=== PATIENT | female | born 1950 | race Caucasian/White ===

== ENCOUNTER 2024-10-21 21:40 | Observation (INO) ==
--- NOTE | 2024-10-22 01:45 | Emergency Department Note ---
HPI - Altered Mental Status General Chief Complaint: Altered Mental Status Stated Complaint: AMS Time Seen by Provider: 10/21/24 22:28 Source: medical record Source comment: Nurse's at [facility] facility and medical record documents from [facility]. Mode of arrival: [place] Limitations: altered mental status and physical limitation Limitations comment: Patient has history of dementia, and is wheelchair or stretcher bound History of Present Illness HPI narrative: 74-year-old female presents to the ED, from [facility] at the [facility], with reports of AMS, specifically, difficult to arouse that occurred at ~ 2030. Upon arrival to ED, patient is awake, alert and oriented. She admits to headache, chronic cough that is productive with dark nieves sputum. Denies fever, chills, body aches, chest pain, shortness of breath, abdominal pain, nausea and vomiting, diarrhea, urinary complaints. Patient has noted to have a chronic indwelling Jackson catheter that was recently changed on 10/19/2024. Patient is a DNR but her POLST document allows for a trial period of IV fluids and IV antibiotics. MD complaint: altered mental status Onset (ago): hour(s) (1) Time: 20:30 Timing confirmed by: other ([facility] staff) Severity: mild-moderate Context: history of similar presentation Treatments prior to arrival: other (None) Related Data Home Medications Medication Instructions Recorded Confirmed acetaminophen 325 mg tablet 650 mg PO Q6H PRN pain 07/03/24 10/22/24 atenolol 50 mg tablet 50 mg PO BID 07/03/24 10/22/24 diclofenac sodium 1 % topical gel 1 g topical Q12H PRN ARTHRITIS 07/03/24 10/22/24 fluticasone furoate 200 1 inh inhalation Q24H 07/03/24 10/22/24 mcg-vilanterol 25 mcg/dose inhalation powder (Breo Ellipta) ipratropium 0.5 mg-albuterol 3 mg 3 ml inhalation Q6H PRN COPD 07/03/24 10/22/24 (2.5 mg base)/3 mL nebulization soln lisinopril 5 mg tablet 5 mg PO .QD 07/03/24 10/22/24 megestrol 40 mg tablet 40 mg PO BID 07/03/24 10/22/24 olanzapine 2.5 mg tablet 2.5 mg PO BID 07/03/24 10/22/24 polyethylene glycol 3350 17 17 g PO BEDTIME constipation 07/03/24 10/22/24 gram/dose oral powder ascorbic acid (vitamin C) 500 mg 500 mg PO BID 08/27/24 10/22/24 tablet docusate sodium 50 mg/5 mL oral 100 mg PO BID 08/27/24 10/22/24 liquid (OneLAX Docusate Sodium) gabapentin 400 mg capsule 400 mg PO DAILY 08/27/24 10/22/24 gabapentin 800 mg tablet 800 mg PO BEDTIME 08/27/24 10/22/24 hydrocodone 10 mg-acetaminophen 1 tab PO Q8H PRN pain 08/27/24 10/22/24 325 mg tablet whey protein isolate 6 gram-25 1 ea PO TID 08/27/24 10/22/24 kcal/7 gram oral powder packet (Beneprotein) Previous Rx's Medication Instructions Recorded clindamycin HCl 300 mg capsule 300 mg PO Q6H aspiration pneumonia 10/23/24 #20 caps Allergies Allergy/AdvReac Type Severity Reaction Status Date / Time fentanyl Allergy Unknown Verified 10/21/24 23:13 Review of Systems Status of ROS 10 or more systems reviewed and unremark able except as noted in history and below Constitutional Denies: fever or chills Eyes Denies: change in vision, eye discomfort or eye discharge Ears, nose, mouth, and throat Denies: throat pain, neck pain, difficulty swallowing, hoarseness, ear pain or nasal discharge Cardiovascular Denies: chest pain, palpitations, edema, swelling of feet/ankles or lightheadedness Respiratory Reports: cough (Productive with dark nieves sputum) and chest congestion; Denies: shortness of breath, wheezing or pain on inspiration Gastrointestinal Reports: other (Denies dark, tarry stool); Denies: abdominal pain, nausea, vomiting, heartburn, diarrhea, constipation or blood in stool Genitourinary Reports: other (Patient has chronic indwelling Jackson); Denies: decreased urine ouput Musculoskeletal Denies: back pain, neck pain, extremity pain, extremity swelling or limited range of motion Integumentary/Breast Denies: rash, itching or sores Neurological Reports: headache, weakness in extremities (LE's (at baseline)) and involuntary movements (tremor noted to bilateral hands); Denies: numbness in extremities, slurred speech or difficulty communicating thoughts Psychiatric Denies: anxiety or difficulty concentrating Endocrine Denies: excessive urination or excessive thirst Hematologic/Lymphatic Denies: easy bruising or easy bleeding PFSH PFS Medical History SOB (shortness of breath) CAP (community acquired pneumonia) Protein-calorie malnutrition, moderate Acute urinary retention Hyponatremia GERD (gastroesophageal reflux disease) UTI (urinary tract infection) due to urinary indwelling catheter Dementia MDD (major depressive disorder) COPD (chronic obstructive pulmonary disease) Anxiety Anemia Osteoarthritis Bronchiectasis Hypertension Social History (Updated 10/22/24 @ 07:02 by Manju Gaitan APRN) Smoking status: never smoker Within the past year, how often did you have a drink containing alcohol: never Score interpretation: A score less than 3 is consistent with normal alcohol consumption. Non-prescribed substance use: denies use Problems where you live: no known problems Highest level of school completed/degree received: [employer] Feel stressed/tense/nervous/anxious/difficulty sleeping: not at all Due to disability, difficulty making decisions: Yes Exam Constitutional: abnormal general appearance (chronically ill), no apparent distress, average body habitus and limitations noted (physical limitations) (Pt is WC bound) Vital Signs - 24 hr 10/21/24 21:45 10/21/24 22:00 10/21/24 23:00 Temperature 98 F Pulse Rate 73 71 68 Respiratory Rate 20 19 20 Blood Pressure 106/59 113/65 106/64 Pulse Oximetry 96 97 95 Oxygen Delivery Me thod Nasal Cannula Nasal Cannula Nasal Cannula Oxygen Flow Rate 2 2 2 10/22/24 00:00 10/22/24 01:00 10/22/24 02:00 Temperature Pulse Rate 75 69 73 Respiratory Rate 19 19 20 Blood Pressure 116/69 124/63 115/66 Pulse Oximetry 97 96 95 Oxygen Delivery Me thod Nasal Cannula Nasal Cannula Nasal Cannula Oxygen Flow Rate 2 2 2 10/22/24 03:00 10/22/24 04:00 10/22/24 05:00 Temperature Pulse Rate 71 74 71 Respiratory Rate 18 20 18 Blood Pressure 127/74 131/75 144/81 Pulse Oximetry 97 96 97 Oxygen Delivery Me thod Nasal Cannula Nasal Cannula Nasal Cannula Oxygen Flow Rate 2 2 2 HENMT: normocephalic, head/scalp atraumatic, hearing grossly normal bilaterally, external ears normal, TMs normal bilaterally, nasal mucous membranes normal, external nose normal, oral mucous membranes abnormal (dry) and oropharynx normal Eyes: PERRL, EOMs intact bilaterally, conjunctivae normal, no scleral icterus and periorbital findings normal Neck/C-Spine: visual inspection normal, trachea midline, cervical spine nontender, cervical full ROM noted and supple Lymph: no lymphadenopathy noted Chest: inspection of chest normal and palpation of chest normal Respiratory: breath sounds unequal (scattered rhonchi throughout, worse on R), normal respiratory effort, auscultation abnormal (scattered rhonchi throughout, worse on R), no wheezes and no use of accessory muscles Cardiovascular: normal heart rate noted, regular rhythm noted and no JVD Gastrointestinal: abdomen normal to inspection, abdomen soft to palpation, nontender to palpation, nondistended, normoactive bowel sounds, no hepatosplenomegaly and no masses Genitourinary: no CVA tenderness and bladder normal to palpation chronic indwelling jackson catheter intact Back/Pelvis: spine normal to inspection, no thoracic spine tenderness, no lumbar spine tenderness, thoracic spine ROM normal and lumbar spine ROM normal Extremities: normal to inspection, normal to palpation, tenderness noted (severe TTP R femur) and abnormal ROM noted (chronic, at baseline) Neurology: movement abnormality noted other (tremors boo hands), no focal motor deficit noted, no sensory deficits noted, gait abnormality noted (unable to access), speech normal, coordination normal and GCS normal Psychiatry: mental status grossly normal, oriented x3, thought process normal, cooperative and affect normal Skin: skin color normal, no rash, wound(s) noted Reports (superficial) (R buttock sacral decub), skin turgor abnormal Reports (tenting) and jaundice noted Course Vital Signs Vital signs: Vital Signs Temperature 98 F 10/21/24 21:45 Pulse Rate 73 10/21/24 21:45 Respiratory Rate 20 10/21/24 21:45 Blood Pressure 106/59 10/21/24 21:45 Pulse Oximetry 96 10/21/24 21:45 Oxygen Delivery Method Nasal Cannula 10/21/24 21:45 Oxygen Flow Rate 2 10/21/24 21:45 Temperature 98.4 F 10/23/24 08:00 Pulse Rate 78 10/23/24 08:00 Respiratory Rate 16 10/23/24 08:00 Blood Pressure 151/80 10/23/24 08:00 Pulse Oximetry 96 10/23/24 07:07 Oxygen Delivery Method Room Air 10/23/24 08:00 Oxygen Flow Rate 2 10/23/24 07:07 Fraction of Inspired Oxygen 28 10/23/24 07:07 MDM - Altered Mental Status MDM Narrative Medical decision making narrative: CBC essentially unremarkable. CMP within normal limits except for sodium 129L, chloride 96.0L, anion gap 1.0L, BUN 25H, calcium 10.8 H, albumin 2.8L. CXR reveal a RML pneumonia and her urinalysis is consistent with a UTI. Pt started on Rocephin 1g IV, Azithromycin 500 mg IV and Vancomycin 1g IV while in the ED. Pt has been awake and alert, oriented x 3 since arrival to the ED. However, pt consistently screams help to get someone to come to her room to sit with her. I have discussed the clinical case, including pertinent positives and negatives with [place] (TIMBO) @ 0632, and the need for further testing/observation in the inpatient arena. She has recommend observation status. I have made the patient and daughter aware of the current disposition plan. Differential Diagnosis Differential diagnosis: Likely altered mental status, delirium, dementia, hypoglycemia, hyponatremia, sepsis and OTHER (pneumonia, UTI, CVA) Medical Records Attestation: I reviewed the patient's medical records. Lab Data Attestation: I reviewed the patient's lab results. Labs: Lab Results 10/22/24 10/22/24 Range/Units 01:25 06:40 WBC 5.6 (4.3-9.3) K/uL RBC 3.8 L (4.00-5.50) M/uL Hgb 12.2 L (12.5-15.8) gm/dL Hct 35.2 L (35.9-46.7) % MCV 93.3 (81.0-93.7) fl MCH 32.3 H (27.6-32.2) pg MCHC 34.6 (33.1-35.3) g/dl RDW 13.3 (11.4-14.2) % Plt Count 218 (152-353) K/uL MPV 8.8 (6.9-10.8) fl Gran % 59.5 (47.8-71.3) % Lymph % (Auto) 26.7 (20.0-43.0) % [place] % (Auto) 10.3 H (3.6-9.8) % Eos % (Auto) 3.1 H (0.4-2.8) % Baso % (Auto) 0.4 (0.1-0.85) Lymph # (Auto) 1.5 (1.1-3.1) [place] # (Auto) 0.6 L (1.1-3.1) Eos # (Auto) 0.2 (0.0-0.2) Baso # (Auto) 0.0 (0.0-0.1) Absolute Gran (auto) 3.3 (2.3-6.0) Sodium 129 L (136-145) mmol/L Potassium 4.7 (3.6-5.2) mmol/L Chloride 96.0 L (98-107) mmol/L Carbon Dioxide 32 (21-32) mmol/L Anion Gap 1.0 L (4-14) mEq/L BUN 25 H (7-18) mg/dL Creatinine 0.6 (0.6-1.3) mg/dL Estimated GFR 93.0 (>59.9) Glucose 88 (70-110) mg/dL Calcium 10.8 H (8.5-10.1) mg/dL Total Bilirubin 0.61 (0.0-1.0) mg/dL AST 19 (15-37) U/L ALT 17 L (30-65) U/L Alkaline Phosphatase 73 (50-136) U/L Total Protein 7.2 (6.4-8.2) g/dL Albumin 2.8 L (3.4-5.0) g/dL Urine Color Yellow (STRAW/YELL.) Urine Appearance Cloudy (CLEAR) Ur Specific [place] 1.025 (1.001-1.035) Urine Protein Negative (NEGATIVE) Urine Glucose (UA) Normal (NORMAL) Urine Ketones Negative (NEGATIVE) Urine Occult Blood Negative (NEG - TRACE) Urine Nitrite Negative (NEGATIVE) Urine Bilirubin Negative (NEGATIVE) Urine Urobilinogen Normal (NORMAL) Ur Leukocyte Esterase Positive (NEGATIVE) Urine RBC 0 - 2 (0 - 5) Urine WBC 2 - 5 ( 0 - 5) Ur Epithelial Cells Few (Few/HPF) Amorphous Sediment Few (Negative) Urine Bacteria Negative (Negative) Urine Mucus Negative (Negative) Urine Trichomonas Negative (Negative) Urine Yeast Negative (Negative) Fluid pH 8.0 (5 - 9) Imaging Data Imaging ordered: Chest x-ray Attestation: I have reviewed the pertinent imaging results. Radiologist's impression: PROCEDURE: Chest X-ray 1 View. HISTORY: AMS, productive coughAMS, productive cough; . TECHNIQUE: AP view. COMPARISON: August 28, 2024. TECHNICAL QUALITY: Satisfactory. FINDINGS: Normal size heart. Mediastinum and hilar regions show no masses or lymphadenopathy. Normal central vascularity. Increased consolidation right mid lung khan consistent with pneumonia. Left lung khan clear. No pleural fluid. No acute bony abnormality. IMPRESSION: Right mid lung field pneumonia. THIS IS AN ELECTRONICALLY VERIFIED FINAL REPORT 10/22/2024 5:47 AM - Electronically signed by Washington Vaz MD Discharge Plan Discharge Patient Disposition: Admitted As Observation Condition: Improved Clinical Impression: AMS (altered mental status), Community acquired pneumonia of right middle lobe of lung, Acute hyponatremia, Acute dehydration, Hypochloremia, Decubitus ulcer of right buttock, stage 1, Acute UTI Interventions: ED Discharge Assessment Last Done: 10/22/24 12:35 ED Discharge Vital Sign Last Done: 10/22/24 12:35 Emergency Department Charge Sheet Last Done: 10/22/24 12:35 Time of Disposition: 06:32 Discharge Date/Time: 10/22/24 12:35
[2024-10-22 02:00] LABS: Basophils%(Percent) Auto 0.4 (0.1-0.85); Eosinophils#(Absolute)Auto 0.2 (0.0-0.2); Eosinophils%(Percent) Auto 3.1 % (0.4-2.8); Granulocytes % - Auto 59.5 % (47.8-71.3); Granulocytes#(Absolute)- Auto 3.3 (2.3-6.0); Hematocrit 35.2 % (35.9-46.7); Mean Corpuscular Volume 93.3 fl (81.0-93.7); Monocytes #(Absolute)- Auto 0.6 (1.1-3.1); Monocytes %(Percent)- Auto 10.3 % (3.6-9.8); Platelet Count 218 K/uL (152-353); Potassium 4.7 mmol/L (3.6-5.2); White Blood Count 5.6 K/uL (4.3-9.3)
[2024-10-22 07:48] LABS: Specific Gravity Urine 1.025 (1.001-1.035); Urine Appearance CLOUDY (CLEAR); Urine Blood NEGATIVE (NEG - TRACE); Urine Color YELLOW (STRAW/YELL.); Urine Urobilinogen Normal (NORMAL)
[2024-10-22 07:59] LABS: Urine Amorphous Sediment Few (Negative); Urine Yeast Negative (Negative)
[2024-10-22] MEDS ORDERED: 0.9 % SODIUM CHLORIDE 1000 ML 1,000 ML IV ONE (08:04)
[2024-10-22] MEDS ORDERED: 0.9 % SODIUM CHLORIDE MB+ 50 ML IV ONE (08:04)
[2024-10-22] MEDS ORDERED: 0.9 % SODIUM CHLORIDE 250 ML IV ONE ×2 (08:04→09:29)
[2024-10-22] MEDS ORDERED: CEFTRIAXONE SODIUM 1 GM VIAL ONE (08:05)
[2024-10-22] MEDS ORDERED: AZITHROMYCIN 500 MG VIAL ONE (08:05)
[2024-10-22] MEDS: 0.9 % SODIUM CHLORIDE 1000 ML 1,000 ML IV STA (08:10)
[2024-10-22] MEDS: AZITHROMYCIN 500 MG 500 MG in 0.9 % SODIUM CHLORIDE 250 ML IV ONE ×2 (08:11→08:12)
[2024-10-22] MEDS: CEFTRIAXONE SODIUM 1 GM in 0.9 % SODIUM CHLORIDE MB+ 50 ML IV ONE ×2 (08:11→08:15)
[2024-10-22] MEDS ORDERED: VANCOMYCIN HCL 1,000 MG VIAL IV ONE (08:26)
[2024-10-22] MEDS: VANCOMYCIN HCL 1,000 MG in 0.9 % SODIUM CHLORIDE 250 ML IV STA (09:30)
[2024-10-22] MEDS ORDERED: HYDROCODONE/APAP 10/325 MG 1 EACH TABLET PO PRN (14:00)
[2024-10-22] MEDS ORDERED: ACETAMINOPHEN 325 MG TABLET PO PRN (14:00)
[2024-10-22] MEDS: IPRATROPIUM/ALBUTEROL SULFATE 3 ML AMPUL.NEB INH PRN (14:03)
[2024-10-22] MEDS: CEFTRIAXONE SODIUM 1 GM in 0.9 % SODIUM CHLORIDE MB+ 50 ML IV SCH (14:50)
[2024-10-22] MEDS ORDERED: VANCOMYCIN HCL 1,000 MG in 0.9 % SODIUM CHLORIDE 250 ML IV ONE (15:00)
[2024-10-22] MEDS: lisinopriL 5 MG TABLET PO SCH (16:43)
[2024-10-22] MEDS: atenoloL 50 MG TABLET PO SCH (16:43)
[2024-10-22] MEDS: PANTOPRAZOLE SODIUM 40 MG TABLET.DR PO ONE (16:43)
[2024-10-22] MEDS: ENOXAPARIN SODIUM 40 MG/0.4 ML SYRINGE SUBQ SCH (16:44)
[2024-10-22] MEDS: polyethylene glycoL 3350 17 GM POWD.PACK PO SCH (21:48)
[2024-10-22] MEDS: MEGESTROL ACETATE 40 MG TABLET PO SCH (21:48)
[2024-10-22] MEDS: OLANZapine 2.5 MG TABLET PO SCH (21:50)
[2024-10-23 03:11] VITALS: RESP 16
[2024-10-23 05:44] LABS: Basophils%(Percent) Auto 0.4 (0.1-0.85); Eosinophils#(Absolute)Auto 0.3 (0.0-0.2); Eosinophils%(Percent) Auto 4.1 % (0.4-2.8); Granulocytes % - Auto 64.7 % (47.8-71.3); Granulocytes#(Absolute)- Auto 4.2 (2.3-6.0); Hematocrit 34.4 % (35.9-46.7); Mean Corpuscular Volume 92.6 fl (81.0-93.7); Monocytes #(Absolute)- Auto 0.8 (1.1-3.1); Monocytes %(Percent)- Auto 12.8 % (3.6-9.8); Platelet Count 196 K/uL (152-353); White Blood Count 6.5 K/uL (4.3-9.3)
[2024-10-23 06:13] LABS: Potassium 4.3 mmol/L (3.6-5.2)
[2024-10-23] MEDS: CEFTRIAXONE SODIUM 1 GM in 0.9 % SODIUM CHLORIDE MB+ 50 ML IV SCH (08:30)
[2024-10-23] MEDS: AZITHROMYCIN 500 MG 500 MG in 0.9 % SODIUM CHLORIDE 250 ML IV SCH (09:30)
[2024-10-23] MEDS: VANCOMYCIN/WATER 750 MG 750 MG/150 ML PIGGYBACK IV SCH (12:10)
--- NOTE | 2024-10-23 12:11 | Short Stay Summary ---
H&P: HPI History of Present Illness Chief complaint: AMS, RML PNEUMONIA, HYPONATREMIA, HYPOCHLOREMIA Narrative: 74-year-old female presents to the ED, from [facility], with reports of AMS, specifically, difficult to arouse that occurred at ~ 2030. Upon arrival to ED, patient is awake, alert and oriented. She admits to headache, chronic cough that is productive with dark nieves sputum. Denies fever, chills, body aches, chest pain, shortness of breath, abdominal pain, nausea and vomiting, diarrhea, urinary complaints. Patient has noted to have a chronic indwelling Jackson catheter that was recently changed on 10/19/2024. Patient is a DNR but her POLST document allows for a trial period of IV fluids and IV antibiotics. Admitted patient to med/surg for observation and treatment. Review of Systems Status of ROS 10 or more systems reviewed and unremark able except as noted in history and below Constitutional Denies: fever or chills Eyes Denies: change in vision, eye discomfort or eye discharge Ears, nose, mouth, and throat Denies: throat pain, neck pain, difficulty swallowing, hoarseness, ear pain or nasal discharge Cardiovascular Denies: chest pain, palpitations, edema, swelling of feet/ankles, lightheadedness or shortness of breath with exertion Respiratory Reports: cough (Productive with dark nieves sputum) and chest congestion; Denies: shortness of breath, wheezing or pain on inspiration Gastrointestinal Reports: other (Denies dark, tarry stool); Denies: abdominal pain, nausea, vomiting, heartburn, diarrhea, constipation, difficulty swallowing or blood in stool Genitourinary Reports: other (Patient has chronic indwelling Jackson); Denies: decreased urine ouput Musculoskeletal Denies: back pain, neck pain, extremity pain, extremity swelling or limited range of motion Integumentary/Breast Denies: rash, itching or sores Neurological Reports: headache, weakness in extremities (LE's (at baseline)) and involuntary movements (tremor noted to bilateral hands); Denies: numbness in extremities, slurred speech or difficulty communicating thoughts Psychiatric Denies: anxiety or difficulty concentrating Endocrine Denies: excessive urination or excessive thirst Hematologic/Lymphatic Denies: easy bruising or easy bleeding Allergic/Immunologic Denies: wheezing PFSH [facility] Medical History SOB (shortness of breath) CAP (community acquired pneumonia) Protein-calorie malnutrition, moderate Acute urinary retention Hyponatremia GERD (gastroesophageal reflux disease) UTI (urinary tract infection) due to urinary indwelling catheter Dementia MDD (major depressive disorder) COPD (chronic obstructive pulmonary disease) Anxiety Anemia Osteoarthritis Bronchiectasis Hypertension Social History (Updated 10/22/24 @ 07:02 by Manju Gaitan APRN) Smoking status: never smoker Within the past year, how often did you have a drink containing alcohol: never Score interpretation: A score less than 3 is consistent with normal alcohol consumption. Non-prescribed substance use: denies use Problems where you live: no known problems Highest level of school completed/degree received: [employer] Feel stressed/tense/nervous/anxious/difficulty sleeping: not at all Due to disability, difficulty making decisions: Yes Meds Home Medications and Allergies Home Medications Medication Instructions Recorded Confirmed Type acetaminophen 325 mg tablet 650 mg PO Q6H PRN pain 07/03/24 10/22/24 History atenolol 50 mg tablet 50 mg PO BID 07/03/24 10/22/24 History diclofenac sodium 1 % topical gel 1 g topical Q12H PRN ARTHRITIS 07/03/24 10/22/24 History fluticasone furoate 200 1 inh inhalation Q24H 07/03/24 10/22/24 History mcg-vilanterol 25 mcg/dose inhalation powder (Breo Ellipta) ipratropium 0.5 mg-albuterol 3 mg 3 ml inhalation Q6H PRN COPD 07/03/24 10/22/24 History (2.5 mg base)/3 mL nebulization soln lisinopril 5 mg tablet 5 mg PO .QD 07/03/24 10/22/24 History megestrol 40 mg tablet 40 mg PO BID 07/03/24 10/22/24 History olanzapine 2.5 mg tablet 2.5 mg PO BID 07/03/24 10/22/24 History polyethylene glycol 3350 17 17 g PO BEDTIME constipation 07/03/24 10/22/24 History gram/dose oral powder ascorbic acid (vitamin C) 500 mg 500 mg PO BID 08/27/24 10/22/24 History tablet docusate sodium 50 mg/5 mL oral 100 mg PO BID 08/27/24 10/22/24 History liquid (OneLAX Docusate Sodium) gabapentin 400 mg capsule 400 mg PO DAILY 08/27/24 10/22/24 History gabapentin 800 mg tablet 800 mg PO BEDTIME 08/27/24 10/22/24 History hydrocodone 10 mg-acetaminophen 1 tab PO Q8H PRN pain 08/27/24 10/22/24 History 325 mg tablet whey protein isolate 6 gram-25 1 ea PO TID 08/27/24 10/22/24 History kcal/7 gram oral powder packet (Beneprotein) clindamycin HCl 300 mg capsule 300 mg PO Q6H aspiration pneumonia 10/23/24 Rx #20 caps Allergies Allergy/AdvReac Type Severity Reaction Status Date / Time fentanyl Allergy Unknown Verified 10/21/24 23:13 Exam Exam: Patient was resting in melendez's position upon entering the room for exam. Constitutional: abnormal general appearance (chronically ill), no apparent distress, average body habitus, limitations noted (physical limitations) (Pt is WC bound) and alert Vital Signs - 24 hr 10/22/24 11:00 10/22/24 12:00 10/22/24 12:35 Temperature 98 F Pulse Rate 63 69 69 Pulse Rate [Left C arotid] Respiratory Rate 20 20 20 Blood Pressure 150/65 148/64 148/64 Blood Pressure [Ri ght Arm] Pulse Oximetry 97 98 98 Oxygen Delivery Me thod Nasal Cannula Nasal Cannula Oxygen Flow Rate 2 2 Fraction of Inspir ed Oxygen 10/22/24 17:00 10/22/24 17:54 10/22/24 20:00 Temperature 97.6 F 98.4 F Pulse Rate 77 Pulse Rate [Left C arotid] 101 H 90 Respiratory Rate 18 17 Blood Pressure Blood Pressure [Ri ght Arm] 115/57 139/76 Pulse Oximetry 96 98 Oxygen Delivery Me thod Nasal Cannula Room Air Oxygen Flow Rate 2 Fraction of Inspir ed Oxygen 10/22/24 20:06 10/22/24 21:48 10/22/24 22:48 Temperature Pulse Rate 90 72 Pulse Rate [Left C arotid] Respiratory Rate Blood Pressure 139/76 139/78 Blood Pressure [Ri ght Arm] Pulse Oximetry 97 Oxygen Delivery Me thod Oxygen Flow Rate Fraction of Inspir ed Oxygen 10/23/24 03:10 10/23/24 06:00 10/23/24 07:07 Temperature 98.2 F 98.1 F Pulse Rate Pulse Rate [Left C arotid] 72 72 Respiratory Rate 16 16 Blood Pressure Blood Pressure [Ri ght Arm] 139/73 145/84 Pulse Oximetry 98 97 96 Oxygen Delivery Me thod Nasal Cannula Nasal Cannula Nasal Cannula Oxygen Flow Rate 2 2 2 Fraction of Inspir ed Oxygen 28 10/23/24 08:00 Temperature 98.4 F Pulse Rate Pulse Rate [Left C arotid] 78 Respiratory Rate 16 Blood Pressure Blood Pressure [Ri ght Arm] 151/80 Pulse Oximetry Oxygen Delivery Me thod Room Air Oxygen Flow Rate Fraction of Inspir ed Oxygen HENMT: normocephalic, head/scalp atraumatic, hearing grossly normal bilaterally, external ears normal, TMs normal bilaterally, nasal mucous membranes normal, external nose normal, oral mucous membranes abnormal (dry) and oropharynx normal Eyes: PERRL, EOMs intact bilaterally, conjunctivae normal, no scleral icterus and periorbital findings normal Neck/C-Spine: visual inspection normal, trachea midline, cervical spine nontender, cervical full ROM noted and supple Lymph: no lymphadenopathy noted Chest: inspection of chest normal and palpation of chest normal Respiratory: breath sounds unequal (scattered rhonchi throughout, worse on R), normal respiratory effort, auscultation abnormal (scattered rhonchi throughout, worse on R), no wheezes and no use of accessory muscles Cardiovascular: normal heart rate noted, regular rhythm noted and no JVD Gastrointestinal: abdomen normal to inspection, abdomen soft to palpation, nontender to palpation, nondistended, normoactive bowel sounds, no hepatosplenomegaly and no masses Genitourinary: no CVA tenderness and bladder normal to palpation chronic indwelling jackson catheter intact Back/Pelvis: spine normal to inspection, no thoracic spine tenderness, no lumbar spine tenderness, thoracic spine ROM normal and lumbar spine ROM normal Extremities: normal to inspection, normal to palpation, tenderness noted (severe TTP R femur) and abnormal ROM noted (chronic, at baseline) Neurology: movement abnormality noted other (tremors boo hands), no focal mot or deficit noted, no sensory deficits noted, gait abnormality noted (unable to access), speech normal, coordination normal and GCS normal Psychiatry: mental status grossly normal, oriented x3, thought process normal, cooperative and affect normal Skin: skin color normal, no rash, wound(s) noted Reports (superficial) (R buttock sacral decub), skin turgor normal and jaundice noted Assessment and Plan Assessment and Plan (1) Constipation: Qualifiers: Constipation type: unspecified constipation type Qualified Code(s): K59.00 - Constipation, unspecified Code(s): K59.00 - Constipation, unspecified (2) Pneumonia: Qualifiers: Pneumonia type: aspiration pneumonia Aspiration pneumonia type: unspecified Laterality: unspecified laterality Lung location: unspecified part of lung Qualified Code(s): J69.0 - Pneumonitis due to inhalation of food and vomit Code(s): J18.9 - Pneumonia, unspecified organism (3) Hypertension: Qualifiers: Hypertension type: primary hypertension Qualified Code(s): I10 - Essential (primary) hypertension Code(s): I10 - Essential (primary) hypertension (4) Dementia: Qualifiers: Dementia type: vascular dementia Dementia severity: moderate Dementia behavioral or psychological symptom: with other behavioral disturbance Qualified Code(s): F01.B18 - Vascular dementia, moderate, with other behavioral disturbance Code(s): F03.90 - Unspecified dementia, unspecified severity, without behavioral disturbance, psychotic disturbance, mood disturbance, and anxiety (5) Hypercalcemia: Code(s): E83.52 - Hypercalcemia (6) Hypoalbuminemia: Code(s): E88.09 - Other disorders of plasma-protein metabolism, not elsewhere classified (7) Hyponatremia: Code(s): E87.1 - Hypo-osmolality and hyponatremia Plan Atenolol 50 mg PO BID Lisinopril 5 mg PO Daily Megestrol Acetate 40 mg PO BID Olanzapine 2.5 mg PO BID Polyethylene Glycol 17 gm PO Bedtime Azithromycin 500 mg in Sodium Chloride 250 mls @ 250 mls/hr IV Daily Enoxaparin Sodium 40 mg SUBQ Daily Vancomycin/Water 750 mg in 150 mls @ 100 mls/hr IV Q24H Ceftriaxone Sodium 1 gm in Sodium Chloride 50 mls @ 100 mls/hr IV Q24H Acetaminophen 325 mg PO Q6H PRN Hydrocodone Bitart/Acetaminophen 10-325 mg (1) each PO Q8H PRN Albuterol Sulfate 3 ml INH Q6H PRN Patient is ready for discharge back to the longterm. Results Labs Labs: CBC WBC 6.5 K/uL (4.3-9.3) 10/23/24 05:20 RBC 3.7 M/uL (4.00-5.50) L 10/23/24 05:20 Hgb 11.9 gm/dL (12.5-15.8) L 10/23/24 05:20 Hct 34.4 % (35.9-46.7) L 10/23/24 05:20 MCV 92.6 fl (81.0-93.7) 10/23/24 05:20 MCH 32.2 pg (27.6-32.2) 10/23/24 05:20 MCHC 34.8 g/dl (33.1-35.3) 10/23/24 05:20 RDW 13.2 % (11.4-14.2) 10/23/24 05:20 Plt Count 196 K/uL (152-353) 10/23/24 05:20 MPV 8.7 fl (6.9-10.8) 10/23/24 05:20 Gran % 64.7 % (47.8-71.3) 10/23/24 05:20 Lymph % (Auto) 18.0 % (20.0-43.0) L 10/23/24 05:20 Harmon % (Auto) 12.8 % (3.6-9.8) H 10/23/24 05:20 Eos % (Auto) 4.1 % (0.4-2.8) H 10/23/24 05:20 Baso % (Auto) 0.4 (0.1-0.85) 10/23/24 05:20 Lymph # (Auto) 1.2 (1.1-3.1) 10/23/24 05:20 Harmon # (Auto) 0.8 (1.1-3.1) L 10/23/24 05:20 Eos # (Auto) 0.3 (0.0-0.2) H 10/23/24 05:20 Baso # (Auto) 0.0 (0.0-0.1) 10/23/24 05:20 Absolute Gran (auto) 4.2 (2.3-6.0) 10/23/24 05:20 BMP Sodium 135 mmol/L (136-145) L 10/23/24 05:20 Potassium 4.3 mmol/L (3.6-5.2) 10/23/24 05:20 Chloride 100.0 mmol/L (98-107) 10/23/24 05:20 Carbon Dioxide 29 mmol/L (21-32) 10/23/24 05:20 Anion Gap 6.0 mEq/L (4-14) 10/23/24 05:20 BUN 14 mg/dL (7-18) 10/23/24 05:20 Creatinine 0.6 mg/dL (0.6-1.3) 10/23/24 05:20 Estimated GFR 93.0 (>59.9) 10/23/24 05:20 Glucose 85 mg/dL (70-110) 10/23/24 05:20 Calcium 10.7 mg/dL (8.5-10.1) H 10/23/24 05:20 Phosphorus 2.9 mg/dL (2.5-4.9) 10/23/24 05:20 Magnesium 2.0 mg/dL (1.8-2.4) 10/23/24 05:20 Total Bilirubin 0.47 mg/dL (0.0-1.0) 10/23/24 05:20 AST 13 U/L (15-37) L 10/23/24 05:20 ALT 14 U/L (30-65) L 10/23/24 05:20 Alkaline Phosphatase 66 U/L (50-136) 10/23/24 05:20 Total Protein 7.0 g/dL (6.4-8.2) 10/23/24 05:20 Albumin 2.7 g/dL (3.4-5.0) L 10/23/24 05:20 Liver Function Total Bilirubin 0.47 mg/dL (0.0-1.0) 10/23/24 05:20 AST 13 U/L (15-37) L 10/23/24 05:20 ALT 14 U/L (30-65) L 10/23/24 05:20 Alkaline Phosphatase 66 U/L (50-136) 10/23/24 05:20 Total Protein 7.0 g/dL (6.4-8.2) 10/23/24 05:20 Albumin 2.7 g/dL (3.4-5.0) L 10/23/24 05:20 Urine Urine Color Yellow (STRAW/YELL.) 10/22/24 06:40 Urine Appearance Cloudy (CLEAR) 10/22/24 06:40 Ur Specific [place] 1.025 (1.001-1.035) 10/22/24 06:40 Urine Protein Negative (NEGATIVE) 10/22/24 06:40 Urine Glucose (UA) Normal (NORMAL) 10/22/24 06:40 Urine Ketones Negative (NEGATIVE) 10/22/24 06:40 Urine Occult Blood Negative (NEG - TRACE) 10/22/24 06:40 Urine Nitrite Negative (NEGATIVE) 10/22/24 06:40 Urine Bilirubin Negative (NEGATIVE) 10/22/24 06:40 Urine Urobilinogen Normal (NORMAL) 10/22/24 06:40 Ur Leukocyte Esterase Positive (NEGATIVE) 10/22/24 06:40 Imaging Imaging ordered: Chest x-ray Radiologist's impression: Chest X-ray 1 View. Date of Service: 10/22/24 HISTORY: AMS, productive cough. TECHNIQUE: AP view. COMPARISON: August 28, 2024. TECHNICAL QUALITY: Satisfactory. FINDINGS: Normal size heart. Mediastinum and hilar regions show no masses or lymphadenopathy. Normal central vascularity. Increased consolidation right mid lung khan consistent with pneumonia. Left lung khan clear. No pleural fluid. No acute bony abnormality. IMPRESSION: Right mid lung field pneumonia. XR CHEST 1V Date of Service: 10/23/24 HISTORY: PNEUMONIA; COMPARISON: October 22, 2024 FINDINGS: The trachea is midline. The cardiac silhouette is borderline in size. There is mild diffuse chronic interstitial lung disease. There is slight resolution of p atchy infiltrate at right mid and bibasilar lung zones without effusion. The bony thorax reveals spondylosis and status post upper posterior inter spinal fusion, unchanged. IMPRESSION: Slight resolution of bilateral bronchopneumonia. DS: Providers Provider Date of admission: 10/22/24 08:33 Primary care physician: Bhaskar Banks MD Admitting clinician: Manju Gaitan Attending physician on admission: Nell Story Attending physician on discharge: Nell Story Discharging clinician: Nell Story Anticipated date of discharge: 10/23/24 DS: Summary Hospital Course Hospital Course: 74-year-old female presents to the ED, from [facility], with reports of AMS, specifically, difficult to arouse that occurred at ~ 2030. Upon arrival to ED, patient is awake, alert and oriented. She admits to headache, chronic cough that is productive with dark nieves sputum. Denies fever, chills, body aches, chest pain, shortness of breath, abdominal pain, nausea and vomiting, diarrhea, urinary complaints. Patient has noted to have a chronic indwelling Jackson catheter that was recently changed on 10/19/2024. Patient is a DNR but her POLST document allows for a trial period of IV fluids and IV antibiotics. Admitted patient to med/surg for observation and treatment. Patient was treated for pneumonia with Azithromycin 500 mg in Sodium Chloride 250 mls @ 250 mls/hr IV Daily, Vancomycin/Water 750 mg in 150 mls @ 150 mls/hr IV Q24H, Ceftriaxone Sodium 1 gm in Sodium Chloride 50 mls @ 100 mls/hr IV Q24H. She was given Polyethylene Glycol 17 gm PO Bedtime for constipation. Ms. Berg' symptoms improved during her hospital stay and is now ready to be discharged back to the [place] (longterm) at [facility]. Hospitalist recommends a referral to Pulmonology to evaluate lung condition. Speech therapy is to perform a swallow study to evaluate recurrent aspiration at longterm. Patient is to follow up with PCP as needed. Status at Discharge Functional status at discharge: wheelchair bound Overall status at discharge: patient is progressing back to baseline Time Spent with Patient Time attestation: Total time spent providing and/or coordinating discharge services: Time spent: greater than 30 minutes Discharge Plan Discharge Disposition: [facility] Condition: Improved Anticipated Discharge Date/Time: 10/23/24 10:15 Discharge Medications: New clindamycin HCl 300 mg capsule 300 mg PO Q6H Qty: 20 0RF Continued ipratropium-albuterol 0.5 mg-3 mg(2.5 mg base)/3 mL solution for nebulization 3 ml INHALATION Q6H PRN (Reason: COPD) olanzapine 2.5 mg tablet 2.5 mg PO BID megestrol 40 mg tablet 40 mg PO BID lisinopril 5 mg tablet 5 mg PO .QD Rx Instructions: HOLD IF SYSTOLIC BP <110 atenolol 50 mg tablet 50 mg PO BID Rx Instructions: HOLD IF HR <60 AND/OR SYSTOLIC <110 diclofenac sodium 1 % gel 1 g TOPICAL Q12H PRN (Reason: ARTHRITIS) Rx Instructions: APPLY TO BOTH HANDS TOPICALLY EVERY 12 HOURS NEEDED fluticasone furoate-vilanterol [Breo Ellipta] 200-25 mcg/dose blister with device 1 inh INHALATION Q24H acetaminophen 325 mg tablet 650 mg PO Q6H PRN (Reason: pain) polyethylene glycol 3350 17 gram/dose powder 17 g PO BEDTIME Rx Instructions: ALSO TAKES PRN DAILY hydrocodone-acetaminophen 10-325 mg tablet 1 tab PO Q8H PRN (Reason: pain) docusate sodium [OneLAX Docusate Sodium] 50 mg/5 mL liquid 100 mg PO BID Beneprotein 6 gram-25 kcal/7 gram powder in packet 1 ea PO TID ascorbic acid (vitamin C) 500 mg tablet 500 mg PO BID gabapentin 400 mg capsule 400 mg PO DAILY gabapentin 800 mg tablet 800 mg PO BEDTIME Discharge Orders: Discharge Order (Routine); Ordered 10/23/24 Ordered By: Nell Story Activity: as per physical therapy and increase activity as tolerated Diet: other Diet Detail: speech evaluation and diet and nutrition recommendations per findings and PCP agreeance Hospital Course: 74-year-old female presents to the ED, from [facility], with reports of AMS, specifically, difficult to arouse that occurred at ~ 2030. Upon arrival to ED, patient is awake, alert and oriented. She admits to headache, chronic cough that is productive with dark nieves sputum. Denies fever, chills, body aches, chest pain, shortness of breath, abdominal pain, nausea and vomiting, diarrhea, urinary complaints. Patient has noted to have a chronic indwelling Jackson catheter that was recently changed on 10/19/2024. Patient is a DNR but her POLST document allows for a trial period of IV fluids and IV antibiotics. Admitted patient to med/surg for observation and treatment. Patient was treated for pneumonia with Azithromycin 500 mg in Sodium Chloride 250 mls @ 250 mls/hr IV Daily, Vancomycin/Water 750 mg in 150 mls @ 150 mls/hr IV Q24H, Ceftriaxone Sodium 1 gm in Sodium Chloride 50 mls @ 100 mls/hr IV Q24H. She was given Polyethylene Glycol 17 gm PO Bedtime for constipation. Ms. Berg' symptoms improved during her hospital stay and is now ready to be discharged back to the [place] (longterm) at [facility]. Hospitalist recommends a referral to Pulmonology to evaluate lung condition. Speech therapy is to perform a swallow study to evaluate recurrent aspiration at longterm. Patient is to follow up with PCP as needed. Interventions: Discharge Assessment Last Done: 10/23/24 10:38 MED/SURG & ICU Observation Charge Sheet Last Done: 10/23/24 06:27 Print Language: Nepalese Activity Restrictions/Additional Instructions: needs pulmonology referral for follow up of lungs and needs speech consult for aspiration recurrence evaluate and treat in the longterm as warranted Forms: Portal/Health Info Access Inst Follow-Ups: Bhaskar Banks MD [Primary Care Provider] -
[2024-10-23 12:43] VITALS: BP 152/87; PULSE 75; TEMP 98.3
== END 2024-10-23 13:30 ==
LOC: ED 21:40 → MS 21:40
PROVIDERS: ADMIT Family Medicine; ATTEND Family Medicine
DX: L89.311 Pressure ulcer of right buttock, stage 1; K59.00 Constipation, unspecified; E83.52 Hypercalcemia; E87.8 Other disorders of electrolyte and fluid balance, not elsewhere classified; R05.3 Chronic cough; E86.0 Dehydration; E88.09 Other disorders of plasma-protein metabolism, not elsewhere classified; I10 Essential (primary) hypertension; F01.B18 Vascular dementia, moderate, with other behavioral disturbance; J18.9 Pneumonia, unspecified organism; E87.1 Hypo-osmolality and hyponatremia; R41.82 Altered mental status, unspecified; R51.9 Headache, unspecified; N39.0 Urinary tract infection, site not specified

== ENCOUNTER 2024-10-28 13:53 | Observation (INO) ==
--- NOTE | 2024-10-28 14:41 | Emergency Department Note ---
HPI - General Adult General Chief complaint: Altered Mental Status Stated complaint: AMS Source: patient Mode of arrival: walk-in Limitations: no limitations History of Present Illness HPI narrative: This is a 74 year old female patient that presents to the ER with c/o per longterm patient has had been SOB and lethargic today with AMS. Patient denies any chest pain, abdominal pain, back pain, fever, chills or N/V. patient is A&O to name and place and confused to month and year but has a hx of dementia Related Data Home Medications Medication Instructions Recorded Confirmed acetaminophen 325 mg tablet 650 mg PO Q6H PRN pain 07/03/24 10/22/24 atenolol 50 mg tablet 50 mg PO BID 07/03/24 10/22/24 diclofenac sodium 1 % topical gel 1 g topical Q12H PRN ARTHRITIS 07/03/24 10/22/24 fluticasone furoate 200 1 inh inhalation Q24H 07/03/24 10/22/24 mcg-vilanterol 25 mcg/dose inhalation powder (Breo Ellipta) ipratropium 0.5 mg-albuterol 3 mg 3 ml inhalation Q6H PRN COPD 07/03/24 10/22/24 (2.5 mg base)/3 mL nebulization soln lisinopril 5 mg tablet 5 mg PO .QD 07/03/24 10/22/24 megestrol 40 mg tablet 40 mg PO BID 07/03/24 10/22/24 olanzapine 2.5 mg tablet 2.5 mg PO BID 07/03/24 10/22/24 polyethylene glycol 3350 17 17 g PO BEDTIME constipation 07/03/24 10/22/24 gram/dose oral powder ascorbic acid (vitamin C) 500 mg 500 mg PO BID 08/27/24 10/22/24 tablet docusate sodium 50 mg/5 mL oral 100 mg PO BID 08/27/24 10/22/24 liquid (OneLAX Docusate Sodium) gabapentin 400 mg capsule 400 mg PO DAILY 08/27/24 10/22/24 gabapentin 800 mg tablet 800 mg PO BEDTIME 08/27/24 10/22/24 hydrocodone 10 mg-acetaminophen 1 tab PO Q8H PRN pain 08/27/24 10/22/24 325 mg tablet whey protein isolate 6 gram-25 1 ea PO TID 08/27/24 10/22/24 kcal/7 gram oral powder packet (Beneprotein) Previous Rx's Medication Instructions Recorded clindamycin HCl 300 mg capsule 300 mg PO Q6H aspiration pneumonia 10/23/24 #20 caps Allergies Allergy/AdvReac Type Severity Reaction Status Date / Time fentanyl Allergy Unknown Verified 10/28/24 15:10 Review of Systems Status of ROS 10 or more systems reviewed and unremark able except as noted in history and below Constitutional Denies: fever, chills, change in weight, fatigue or malaise Eyes Denies: change in vision, blurry vision, blind spots or light sensitivity Ears, nose, mouth, and throat Denies: throat pain, neck pain, throat swelling, difficulty swallowing or hoarseness Cardiovascular Denies: chest pain, palpitations, edema, swelling of feet/ankles or lightheadedness Respiratory Reports: shortness of breath; Denies: cough, wheezing, stridor, pain on inspiration, change in phlegm color or coughing up blood Gastrointestinal Denies: abdominal pain, nausea, vomiting, coffee grounds in vomit or heartburn Genitourinary Denies: painful urination, urinary frequency, urinary urgency, urinary incontinence or blood in urine Musculoskeletal Denies: back pain, neck pain, extremity pain, extremity swelling, joint pain or limited range of motion Integumentary/Breast Denies: rash, itching, redness, skin pain, skin tenderness, skin swelling or sores Neurological Denies: headache, numbness in extremities, weakness in extremities or lack of coordination Psychiatric Denies: anxiety, mood swings, panic attacks, change in sleep pattern, hopelessness or loss of interest Endocrine Denies: excessive urination, excessive thirst or fatigue Allergic/Immunologic Denies: hives, throat swelling, tongue swelling or facial swelling PFSH PFSH Medical History SOB (shortness of breath) CAP (community acquired pneumonia) Protein-calorie malnutrition, moderate Acute urinary retention Hyponatremia GERD (gastroesophageal reflux disease) UTI (urinary tract infection) due to urinary indwelling catheter Dementia MDD (major depressive disorder) COPD (chronic obstructive pulmonary disease) Anxiety Anemia Osteoarthritis Bronchiectasis Hypertension Social History (Updated 10/22/24 @ 07:02 by Manju Gaitan APRN) Smoking status: never smoker Within the past year, how often did you have a drink containing alcohol: never Score interpretation: A score less than 3 is consistent with normal alcohol consumption. Non-prescribed substance use: denies use Problems where you live: no known problems Highest level of school completed/degree received: [employer] Feel stressed/tense/nervous/anxious/difficulty sleeping: not at all Due to disability, difficulty making decisions: Yes Exam Constitutional: normal general appearance and no apparent distress Vital Signs - 24 hr 10/28/24 14:20 10/28/24 15:23 Temperature 98.2 F Pulse Rate 64 Respiratory Rate 18 Blood Pressure 125/67 Pulse Oximetry 98 100 Oxygen Delivery Me thod Nasal Cannula Oxygen Flow Rate 2 HENMT: normocephalic, head/scalp atraumatic, hearing grossly normal bilaterally and external ears normal Eyes: PERRL, EOMs intact bilaterally, conjunctivae normal and no scleral icterus Neck/C-Spine: visual inspection normal, trachea midline and cervical spine nontender Lymph: no lymphadenopathy noted Chest: inspection of chest normal Respiratory: breath sounds equal bilaterally, normal respiratory effort, clear to auscultation bilaterally, wheezing noted (scattered wheezes), no rales, no retractions, no use of accessory muscles and chest percussion normal Cardiovascular: normal heart rate noted, regular rhythm noted, no gallop, no rub, no murmur, no JVD, no clicks, peripheral pulses 2+ throughout and no additional abnormal heart sounds Gastrointestinal: abdomen normal to inspection, abdomen soft to palpation, nontender to palpation, nontender to percussion, nondistended, normoactive bowel sounds, no hepatosplenomegaly, no masses, no pulsatile mass, no ascites and no hernia Genitourinary: no CVA tenderness Back/Pelvis: spine normal to inspection Extremities: normal to inspection, normal to palpation and no deformity Neurology: speech normal and GCS calculation - (A&Ox to name and place, hx dementia) Psychiatry: orientation abnormal and cooperative A&Ox name and place hx of dementia Skin: skin color normal Course Course Hospital Course: 1549: VSS, no s/s of acute distress noted Vital Signs Vital signs: Vital Signs Temperature 98.2 F 10/28/24 14:20 Pulse Rate 64 10/28/24 14:20 Respiratory Rate 18 10/28/24 14:20 Blood Pressure 125/67 10/28/24 14:20 Pulse Oximetry 98 10/28/24 14:20 Oxygen Delivery Method Nasal Cannula 10/28/24 14:20 Oxygen Flow Rate 2 10/28/24 14:20 Temperature 98.2 F 10/28/24 14:20 Pulse Rate 64 10/28/24 14:20 Respiratory Rate 18 10/28/24 14:20 Blood Pressure 125/67 10/28/24 14:20 Pulse Oximetry 100 10/28/24 15:23 Oxygen Delivery Method Nasal Cannula 10/28/24 14:20 Oxygen Flow Rate 2 10/28/24 14:20 Medical Decision Making Differential Diagnosis Differential Diagnosis: viral illness Medical Records Medical records reviewed: Yes I reviewed the patient's medical records Lab Data Lab results reviewed: Yes I reviewed the patient's lab results Labs: Lab Results 10/28/24 Range/Units 15:15 WBC 6.3 (4.3-9.3) K/uL RBC 4.0 (4.00-5.50) M/uL Hgb 12.5 (12.5-15.8) gm/dL Hct 37.3 (35.9-46.7) % MCV 93.4 (81.0-93.7) fl MCH 31.2 (27.6-32.2) pg MCHC 33.4 (33.1-35.3) g/dl RDW 13.4 (11.4-14.2) % Plt Count 266 (152-353) K/uL MPV 9.0 (6.9-10.8) fl Gran % 66.5 (47.8-71.3) % Lymph % (Auto) 18.0 L (20.0-43.0) % [place] % (Auto) 13.1 H (3.6-9.8) % Eos % (Auto) 2.1 (0.4-2.8) % Baso % (Auto) 0.3 (0.1-0.85) Lymph # (Auto) 1.1 (1.1-3.1) [place] # (Auto) 0.8 L (1.1-3.1) Eos # (Auto) 0.1 (0.0-0.2) Baso # (Auto) 0.0 (0.0-0.1) Absolute Gran (auto) 4.2 (2.3-6.0) Sodium 130 L (136-145) mmol/L Potassium 5.1 (3.6-5.2) mmol/L Chloride 94.0 L (98-107) mmol/L Carbon Dioxide 37 H (21-32) mmol/L Anion Gap -1.0 L (4-14) mEq/L BUN 21 H (7-18) mg/dL Creatinine 0.6 (0.6-1.3) mg/dL Estimated GFR 93.0 (>59.9) Glucose 86 (70-110) mg/dL Lactic Acid 0.6 (0.27-1.43) mmol/L Calcium 11.1 H (8.5-10.1) mg/dL Total Bilirubin 0.33 (0.0-1.0) mg/dL AST 14 L (15-37) U/L ALT 15 L (30-65) U/L Alkaline Phosphatase 74 (50-136) U/L Troponin I High Sens <4.00 L (4.0-60.4) ng/L Total Protein 7.7 (6.4-8.2) g/dL Albumin 3.0 L (3.4-5.0) g/dL Urine Color Yellow (STRAW/YELL.) Urine Appearance Hazy (CLEAR) Ur Specific [place] 1.010 (1.001-1.035) Urine Protein Negative (NEGATIVE) Urine Glucose (UA) Normal (NORMAL) Urine Ketones Negative (NEGATIVE) Urine Occult Blood Negative (NEG - TRACE) Urine Nitrite Negative (NEGATIVE) Urine Bilirubin Negative (NEGATIVE) Urine Urobilinogen Normal (NORMAL) Ur Leukocyte Esterase Positive (NEGATIVE) Urine RBC Negative (0 - 5) Urine WBC 10 - 25 ( 0 - 5) Ur Epithelial Cells Few (Few/HPF) Amorphous Sediment Negative (Negative) Urine Bacteria Few (Negative) Urine Mucus Negative (Negative) Urine Trichomonas Negative (Negative) Urine Yeast Negative (Negative) Urine Sperm Absent Fluid pH 6.0 (5 - 9) Imaging Data CT scan - head: Attestation: I have reviewed the pertinent imaging results. ECG Data Attestation: I have reviewed the pertinent ECG results. Discharge Plan Discharge Patient Disposition: Admitted As Observation Condition: Stable Clinical Impression: AMS (altered mental status), Acute UTI, Acute hyponatremia Time of Disposition: 15:50
[2024-10-28] MEDS: METHYLPREDNISOLONE SOD SUCC/PF 125 MG/2 ML VIAL IVP ONE (14:58)
[2024-10-28] MEDS ORDERED: METHYLPREDNISOLONE SOD SUCC/PF 125 MG/2 ML VIAL ONE (14:58)
[2024-10-28] MEDS: IPRATROPIUM/ALBUTEROL SULFATE 3 ML AMPUL.NEB INH ONE (15:22)
[2024-10-28 15:25] LABS: Potassium 5.1 mmol/L (3.6-5.2)
[2024-10-28 15:27] LABS: Basophils%(Percent) Auto 0.3 (0.1-0.85); Eosinophils#(Absolute)Auto 0.1 (0.0-0.2); Eosinophils%(Percent) Auto 2.1 % (0.4-2.8); Granulocytes % - Auto 66.5 % (47.8-71.3); Granulocytes#(Absolute)- Auto 4.2 (2.3-6.0); Hematocrit 37.3 % (35.9-46.7); Mean Corpuscular Volume 93.4 fl (81.0-93.7); Monocytes #(Absolute)- Auto 0.8 (1.1-3.1); Monocytes %(Percent)- Auto 13.1 % (3.6-9.8); Platelet Count 266 K/uL (152-353); White Blood Count 6.3 K/uL (4.3-9.3)
[2024-10-28 15:42] LABS: Urine Appearance HAZY (CLEAR); Urine Blood NEGATIVE (NEG - TRACE); Urine Color YELLOW (STRAW/YELL.); Urine Urobilinogen Normal (NORMAL)
[2024-10-28] MEDS ORDERED: 0.9 % SODIUM CHLORIDE MB+ 50 ML IV ONE (15:53)
[2024-10-28] MEDS ORDERED: CEFTRIAXONE SODIUM 1 GM VIAL ONE (15:54)
[2024-10-28 15:56] LABS: Urine Amorphous Sediment Negative (Negative); Urine Sperm Absent; Urine Yeast Negative (Negative)
[2024-10-28] MEDS ORDERED: ACETAMINOPHEN 500 MG TABLET PO PRN (16:08)
[2024-10-28] MEDS: CEFTRIAXONE SODIUM 1 GM in 0.9 % SODIUM CHLORIDE MB+ 50 ML IV STA (16:14)
[2024-10-28] MEDS: 0.9 % SODIUM CHLORIDE 500 ML IV ONE (16:14)
[2024-10-28] MEDS ORDERED: lisinopriL 5 MG TABLET PO SCH (16:57)
[2024-10-28] MEDS: 0.9 % SODIUM CHLORIDE 1000 ML 1,000 ML IV SCH (17:09)
[2024-10-28] MEDS: GABAPENTIN 400 MG CAPSULE PO SCH (21:18)
[2024-10-28] MEDS: atenoloL 50 MG TABLET PO SCH (21:18)
[2024-10-29 05:39] LABS: Granulocytes % - Auto 70.1 % (47.8-71.3); Granulocytes#(Absolute)- Auto 3.6 (2.3-6.0); Hematocrit 35.3 % (35.9-46.7); Mean Corpuscular Volume 92.9 fl (81.0-93.7); Monocytes #(Absolute)- Auto 0.5 (1.1-3.1); Platelet Count 234 K/uL (152-353); White Blood Count 5.1 K/uL (4.3-9.3)
[2024-10-29 05:53] LABS: Potassium 4.9 mmol/L (3.6-5.2)
[2024-10-29] MEDS: GABAPENTIN 400 MG CAPSULE PO SCH (09:11)
[2024-10-29] MEDS: CEFTRIAXONE SODIUM 1 GM in 0.9 % SODIUM CHLORIDE MB+ 50 ML IV SCH (09:12)
[2024-10-29] MEDS: MEROPENEM 1 GM VIAL 1 GM in 0.9 % SODIUM CHLORIDE MB+ 50 ML IV SCH (10:39)
[2024-10-29] MEDS: SODIUM CHLORIDE 1,000 MG TABLET PO ONE (10:40)
--- NOTE | 2024-10-29 10:49 | Short Stay Summary ---
H&P: HPI History of Present Illness Chief complaint: hypoatremia, UTI, Dehydration Narrative: This is a 74 year old female patient that presented to the ER with c/o per snf patient had been SOB and lethargic with AMS. Patient denied any chest pain, abdominal pain, back pain, fever, chills or N/V. patient is A&O to name and place and confused to month and year but has a hx of dementia. Patient was admitted to med/surg for observation and treatment due to AMS, Acute UTI, and acute hyponatremia. Review of Systems Status of ROS 10 or more systems reviewed and unremark able except as noted in history and below Constitutional Denies: fever, chills, change in weight, fatigue or malaise Eyes Denies: change in vision, blurry vision, blind spots or light sensitivity Ears, nose, mouth, and throat Denies: throat pain, neck pain, throat swelling, difficulty swallowing or hoarseness Cardiovascular Reports: shortness of breath with exertion; Denies: chest pain, palpitations, edema, swelling of feet/ankles or lightheadedness Respiratory Reports: shortness of breath; Denies: cough, wheezing, stridor, pain on inspiration, change in phlegm color or coughing up blood Gastrointestinal Denies: abdominal pain, nausea, vomiting, coffee grounds in vomit, heartburn or difficulty swallowing Genitourinary Denies: painful urination, urinary frequency, urinary urgency, urinary incontinence or blood in urine Musculoskeletal Denies: back pain, neck pain, extremity pain, extremity swelling, joint pain or limited range of motion Integumentary/Breast Denies: rash, itching, redness, skin pain, skin tenderness, skin swelling or sores Neurological Denies: headache, numbness in extremities, weakness in extremities or lack of coordination Psychiatric Denies: anxiety, mood swings, panic attacks, change in sleep pattern, hopelessness or loss of interest Endocrine Denies: excessive urination, excessive thirst or fatigue Allergic/Immunologic Denies: hives, throat swelling, tongue swelling, facial swelling or wheezing PFSH [facility] Medical History SOB (shortness of breath) CAP (community acquired pneumonia) Protein-calorie malnutrition, moderate Acute urinary retention Hyponatremia GERD (gastroesophageal reflux disease) UTI (urinary tract infection) due to urinary indwelling catheter Dementia MDD (major depressive disorder) COPD (chronic obstructive pulmonary disease) Anxiety Anemia Osteoarthritis Bronchiectasis Hypertension Social History (Updated 10/22/24 @ 07:02 by Manju Gaitan APRN) Smoking status: never smoker Within the past year, how often did you have a drink containing alcohol: never Score interpretation: A score less than 3 is consistent with normal alcohol consumption. Non-prescribed substance use: denies use Problems where you live: no known problems Highest level of school completed/degree received: high school Feel stressed/tense/nervous/anxious/difficulty sleeping: not at all Due to disability, difficulty making decisions: Yes Meds Home Medications and Allergies Home Medications Medication Instructions Recorded Confirmed Type acetaminophen 325 mg tablet 650 mg PO Q6H PRN pain 07/03/24 10/22/24 History atenolol 50 mg tablet 50 mg PO BID 07/03/24 10/22/24 History diclofenac sodium 1 % topical gel 1 g topical Q12H PRN ARTHRITIS 07/03/24 10/22/24 History fluticasone furoate 200 1 inh inhalation Q24H 07/03/24 10/22/24 History mcg-vilanterol 25 mcg/dose inhalation powder (Breo Ellipta) ipratropium 0.5 mg-albuterol 3 mg 3 ml inhalation Q6H PRN COPD 07/03/24 10/22/24 History (2.5 mg base)/3 mL nebulization soln lisinopril 5 mg tablet 5 mg PO .QD 07/03/24 10/22/24 History megestrol 40 mg tablet 40 mg PO BID 07/03/24 10/22/24 History olanzapine 2.5 mg tablet 2.5 mg PO BID 07/03/24 10/22/24 History polyethylene glycol 3350 17 17 g PO BEDTIME constipation 07/03/24 10/22/24 History gram/dose oral powder ascorbic acid (vitamin C) 500 mg 500 mg PO BID 08/27/24 10/22/24 History tablet docusate sodium 50 mg/5 mL oral 100 mg PO BID 08/27/24 10/22/24 History liquid (OneLAX Docusate Sodium) gabapentin 400 mg capsule 400 mg PO DAILY 08/27/24 10/22/24 History gabapentin 800 mg tablet 800 mg PO BEDTIME 08/27/24 10/22/24 History hydrocodone 10 mg-acetaminophen 1 tab PO Q8H PRN pain 08/27/24 10/22/24 History 325 mg tablet whey protein isolate 6 gram-25 1 ea PO TID 08/27/24 10/22/24 History kcal/7 gram oral powder packet (Beneprotein) clindamycin HCl 300 mg capsule 300 mg PO Q6H aspiration pneumonia 10/23/24 Rx #20 caps ipratropium 0.5 mg-albuterol 3 mg 3 ml inhalation Q6H PRN copd #180 10/29/24 Rx (2.5 mg base)/3 mL nebulization mL soln sodium chloride 1,000 mg soluble 1,000 mg PO BID hyponatremia #60 10/29/24 Rx tablet tabs Allergies Allergy/AdvReac Type Severity Reaction Status Date / Time fentanyl Allergy Unknown Verified 10/28/24 15:10 Exam Exam: Patient resting in bed in melendez's position upon entering room for exam. Constitutional: normal general appearance and no apparent distress Vital Signs - 24 hr 10/28/24 14:20 10/28/24 15:00 10/28/24 15:23 Temperature 98.2 F Pulse Rate 64 64 Pulse Rate [Right] Respiratory Rate 18 18 Blood Pressure 125/67 137/71 Blood Pressure [Ri ght Arm] Pulse Oximetry 98 98 100 Oxygen Delivery Me thod Nasal Cannula Nasal Cannula Oxygen Flow Rate 2 2 Fraction of Inspir ed Oxygen 10/28/24 15:30 10/28/24 16:00 10/28/24 16:09 Temperature Pulse Rate 64 64 Pulse Rate [Right] 81 Respiratory Rate 18 18 19 Blood Pressure 141/69 139/72 Blood Pressure [Ri ght Arm] Pulse Oximetry 98 98 98 Oxygen Delivery Me thod Nasal Cannula Nasal Cannula Nasal Cannula Oxygen Flow Rate 2 2 2 Fraction of Inspir ed Oxygen 10/28/24 16:30 10/28/24 16:38 10/28/24 20:00 Temperature 98.4 F Pulse Rate 64 64 Pulse Rate [Right] 68 Respiratory Rate 18 18 17 Blood Pressure 123/73 123/73 Blood Pressure [Ri ght Arm] 116/70 Pulse Oximetry 98 98 92 L Oxygen Delivery Me thod Nasal Cannula Nasal Cannula Oxygen Flow Rate 2 2 Fraction of Inspir ed Oxygen 10/28/24 21:18 10/29/24 00:00 10/29/24 04:00 Temperature 97.8 F 98.5 F Pulse Rate 68 Pulse Rate [Right] 76 84 Respiratory Rate 19 19 Blood Pressure Blood Pressure [Ri ght Arm] 116/67 140/74 Pulse Oximetry 93 L 95 Oxygen Delivery Me thod Nasal Cannula Nasal Cannula Oxygen Flow Rate 2 2 Fraction of Inspir ed Oxygen 10/29/24 08:00 10/29/24 08:31 10/29/24 09:12 Temperature 98 F Pulse Rate 77 Pulse Rate [Right] 77 Respiratory Rate 18 Blood Pressure 137/70 Blood Pressure [Ri ght Arm] 137/70 Pulse Oximetry 95 97 Oxygen Delivery Me thod Nasal Cannula Nasal Cannula Oxygen Flow Rate 2 2 Fraction of Inspir ed Oxygen 28 HENMT: normocephalic, head/scalp atraumatic, hearing grossly normal bilaterally and external ears normal Eyes: PERRL, EOMs intact bilaterally, conjunctivae normal and no scleral icterus Neck/C-Spine: visual inspection normal, trachea midline and cervical spine nontender Lymph: no lymphadenopathy noted Chest: inspection of chest normal Respiratory: breath sounds equal bilaterally, normal respiratory effort, clear to auscultation bilaterally, wheezing noted (scattered wheezes) (baseline), no rales, no retractions, no use of accessory muscles and chest percussion normal Cardiovascular: normal heart rate noted, regular rhythm noted, no gallop, no rub, no murmur, no JVD, no clicks, peripheral pulses 2+ throughout and no additional abnormal heart sounds Gastrointestinal: abdomen normal to inspection, abdomen soft to palpation, nontender to palpation, nontender to percussion, nondistended, normoactive bowel sounds, no hepatosplenomegaly, no masses, no pulsatile mass, no ascites and no hernia Genitourinary: no CVA tenderness Back/Pelvis: spine normal to inspection Extremities: normal to inspection, normal to palpation and no deformity Neurology: speech normal and GCS calculation - (A&Ox to name and place, hx dementia) Eye opening: Spontaneous Verbal response: Orientated Motor response: Obey commands Beatty Coma Scale total score: 15 Psychiatry: orientation abnormal and cooperative A&Ox name and place hx of dementia Skin: skin color normal Assessment and Plan Assessment and Plan (1) Hyponatremia: Code(s): E87.1 - Hypo-osmolality and hyponatremia (2) Acute urinary retention: Code(s): R33.8 - Other retention of urine (3) Protein-calorie malnutrition, moderate: Code(s): E44.0 - Moderate protein-calorie malnutrition (4) Pneumonia: Qualifiers: Aspiration pneumonia type: unspecified Laterality: unspecified laterality Lung location: unspecified part of lung Pneumonia type: aspiration pneumonia Qualified Code(s): J69.0 - Pneumonitis due to inhalation of food and vomit Code(s): J18.9 - Pneumonia, unspecified organism (5) Constipation: Qualifiers: Constipation type: unspecified constipation type Qualified Code(s): K59.00 - Constipation, unspecified Code(s): K59.00 - Constipation, unspecified (6) Hypoalbuminemia: Code(s): E88.09 - Other disorders of plasma-protein metabolism, not elsewhere classified (7) Electrolyte abnormality: Code(s): E87.8 - Other disorders of electrolyte and fluid balance, not elsewhere classified (8) GERD (gastroesophageal reflux disease): Qualifiers: Esophagitis bleeding: without hemorrhage Esophagitis presence: with esophagitis Qualified Code(s): K21.00 - Gastro-esophageal reflux disease with esophagitis, without bleeding Code(s): K21.9 - Gastro-esophageal reflux disease without esophagitis (9) Hypercalcemia: Code(s): E83.52 - Hypercalcemia (10) UTI (urinary tract infection) due to urinary indwelling catheter: Qualifiers: Encounter type: initial encounter Indwelling urinary catheter type: indwelling urethral catheter Qualified Code(s): T83.511A - Infection and inflammatory reaction due to indwelling urethral catheter, initial encounter; N39.0 - Urinary tract infection, site not specified Code(s): T83.511A - Infection and inflammatory reaction due to indwelling urethral catheter, initial encounter; N39.0 - Urinary tract infection, site not specified (11) Bronchiectasis with acute exacerbation: Code(s): J47.1 - Bronchiectasis with (acute) exacerbation (12) Hypoxia: Code(s): R09.02 - Hypoxemia (13) COPD (chronic obstructive pulmonary disease): Qualifiers: COPD type: unspecified COPD Qualified Code(s): J44.9 - Chronic obstructive pulmonary disease, unspecified Code(s): J44.9 - Chronic obstructive pulmonary disease, unspecified (14) Dementia: Qualifiers: Dementia behavioral or psychological symptom: with other behavioral disturbance Dementia severity: moderate Dementia type: vascular dementia Qualified Code(s): F01.B18 - Vascular dementia, moderate, with other behavioral disturbance Code(s): F03.90 - Unspecified dementia, unspecified severity, without behavioral disturbance, psychotic disturbance, mood disturbance, and anxiety (15) Osteoarthritis: Qualifiers: Osteoarthritis location: multiple joints Osteoarthritis type: other secondary Qualified Code(s): 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 Code(s): M19.90 - Unspecified osteoarthritis, unspecified site (16) Anemia: Qualifiers: Anemia type: unspecified type Qualified Code(s): D64.9 - Anemia, unspecified Code(s): D64.9 - Anemia, unspecified (17) Hypertension: Qualifiers: Hypertension type: primary hypertension Qualified Code(s): I10 - Essential (primary) hypertension Code(s): I10 - Essential (primary) hypertension (18) Chronic sinusitis of both maxillary sinuses: Code(s): J32.0 - Chronic maxillary sinusitis (19) Aspiration pneumonia of right lower lobe: Qualifiers: Aspiration pneumonia type: due to regurgitated food Qualified Code(s): J69.0 - Pneumonitis due to inhalation of food and vomit Code(s): J69.0 - Pneumonitis due to inhalation of food and vomit Plan Replaced electrolytes and fluids. Patient is at baseline. Discharge back to LTC at [place]. Results Labs Labs: CBC WBC 5.1 K/uL (4.3-9.3) 10/29/24 05:10 RBC 3.8 M/uL (4.00-5.50) L 10/29/24 05:10 Hgb 11.9 gm/dL (12.5-15.8) L 10/29/24 05:10 Hct 35.3 % (35.9-46.7) L 10/29/24 05:10 MCV 92.9 fl (81.0-93.7) 10/29/24 05:10 MCH 31.3 pg (27.6-32.2) 10/29/24 05:10 MCHC 33.7 g/dl (33.1-35.3) 10/29/24 05:10 RDW 13.2 % (11.4-14.2) 10/29/24 05:10 Plt Count 234 K/uL (152-353) 10/29/24 05:10 MPV 8.1 fl (6.9-10.8) 10/29/24 05:10 Gran % 70.1 % (47.8-71.3) 10/29/24 05:10 Lymph % (Auto) 19.9 % (20.0-43.0) L 10/29/24 05:10 [place] % (Auto) 9.0 % (3.6-9.8) 10/29/24 05:10 Eos % (Auto) 0.0 % (0.4-2.8) L 10/29/24 05:10 Baso % (Auto) 1.0 (0.1-0.85) H 10/29/24 05:10 Lymph # (Auto) 1.0 (1.1-3.1) L 10/29/24 05:10 [place] # (Auto) 0.5 (1.1-3.1) L 10/29/24 05:10 Eos # (Auto) 0.0 (0.0-0.2) 10/29/24 05:10 Baso # (Auto) 0.0 (0.0-0.1) 10/29/24 05:10 Absolute Gran (auto) 3.6 (2.3-6.0) 10/29/24 05:10 BMP Sodium 131 mmol/L (136-145) L 10/29/24 05:10 Potassium 4.9 mmol/L (3.6-5.2) 10/29/24 05:10 Chloride 97.0 mmol/L (98-107) L 10/29/24 05:10 Carbon Dioxide 31 mmol/L (21-32) 10/29/24 05:10 Anion Gap 3.0 mEq/L (4-14) L 10/29/24 05:10 BUN 21 mg/dL (7-18) H 10/29/24 05:10 Creatinine 0.7 mg/dL (0.6-1.3) 10/29/24 05:10 Estimated GFR 89.6 (>59.9) 10/29/24 05:10 Glucose 116 mg/dL (70-110) H 10/29/24 05:10 Calcium 10.6 mg/dL (8.5-10.1) H 10/29/24 05:10 Total Bilirubin 0.30 mg/dL (0.0-1.0) 10/29/24 05:10 AST 9 U/L (15-37) L 10/29/24 05:10 ALT 14 U/L (30-65) L 10/29/24 05:10 Alkaline Phosphatase 67 U/L (50-136) 10/29/24 05:10 Total Protein 7.2 g/dL (6.4-8.2) 10/29/24 05:10 Albumin 2.7 g/dL (3.4-5.0) L 10/29/24 05:10 Cardiac Enzymes Troponin I High Sens <4.00 ng/L (4.0-60.4) L 10/28/24 15:15 Liver Function Total Bilirubin 0.30 mg/dL (0.0-1.0) 10/29/24 05:10 AST 9 U/L (15-37) L 10/29/24 05:10 ALT 14 U/L (30-65) L 10/29/24 05:10 Alkaline Phosphatase 67 U/L (50-136) 10/29/24 05:10 Total Protein 7.2 g/dL (6.4-8.2) 10/29/24 05:10 Albumin 2.7 g/dL (3.4-5.0) L 10/29/24 05:10 Urine Urine Color Yellow (STRAW/YELL.) 10/28/24 15:15 Urine Appearance Hazy (CLEAR) 10/28/24 15:15 Ur Specific Rumely 1.010 (1.001-1.035) 10/28/24 15:15 Urine Protein Negative (NEGATIVE) 10/28/24 15:15 Urine Glucose (UA) Normal (NORMAL) 10/28/24 15:15 Urine Ketones Negative (NEGATIVE) 10/28/24 15:15 Urine Occult Blood Negative (NEG - TRACE) 10/28/24 15:15 Urine Nitrite Negative (NEGATIVE) 10/28/24 15:15 Urine Bilirubin Negative (NEGATIVE) 10/28/24 15:15 Urine Urobilinogen Normal (NORMAL) 10/28/24 15:15 Ur Leukocyte Esterase Positive (NEGATIVE) 10/28/24 15:15 Imaging Imaging ordered: CT scan - chest and CT scan - head Radiologist's impression: CT CHEST WO CON HISTORY: SOB, cough; COMPARISON: CT chest 01/04/2024, chest radiograph 10/23/2024 TECHNIQUE: Multiple CT axial images of the chest were obtained without IV contrast. Coronal and sagittal images were reconstructed. Dose reduction techniques included Automated Exposure Control (AEC) and adjustment of mA and kV. FINDINGS: The heart is normal in size. The pulmonary artery and aorta have a normal caliber. No mediastinal mass or significant lymphadenopathy. The thyroid has a normal size and configuration. No axillary mass or significant axillary lymphadenopathy is identified. Airspace opacity is present in both lower lobes suggesting pneumonia. No significant pleural effusion. Limited images of the upper abdomen show no significant abnormality. Bones are demineralized. Multiple compression fractures are present. These were present in December 2023. Fixation hardware is present in the upper thoracic spine and in the lower cervical spine. IMPRESSION: 1. Bilateral pneumonia CT HEAD/BRAIN WO CON HISTORY: AMSAMS; COMPARISON: CT brain 07/03/2024 TECHNIQUE: Contiguous noncontrast axial CT images of the brain. Images reviewed in the axial imaging plane with reformatted sagittal and coronal images.The above CT scan was done with automated exposure control and the mA and kV was adjusted to obtain quality images according to patient size. FINDINGS: No evidence of acute intracranial hemorrhage, mass effect, or midline shift. Ventricles normal size and shape. IMPRESSION: No acute intracranial process seen. Moderate mucosal thickening within the maxillary sinuses bilaterally with air- fluid level in the left maxillary sinus. DS: Providers Provider Date of admission: 10/28/24 16:16 Primary care physician: Bhaskar Banks MD Admitting clinician: Adela Payton Attending physician on admission: Nell Story Attending physician on discharge: Nell Story Discharging clinician: Nell Story Anticipated date of discharge: 10/29/24 DS: Summary Hospital Course Hospital Course: This is a 74 year old female patient that presented to the ER with c/o per snf patient had been SOB and lethargic with AMS. Patient denied any chest pain, abdominal pain, back pain, fever, chills or N/V. patient is A&O to name and place and confused to month and year but has a hx of dementia. Patient was admitted to med/surg for observation and treatment due to AMS, Acute UTI, and acute hyponatremia. Patient was started on Ceftriaxone Sodium 1 gm in Sodium Chloride 50 mls @ 100 mls/hr IV for her urinary track infection. Hyponatremia has been treated with Sodium Chloride 1,000 mls @ 75 mls/hr IV; sodium level is progressing back to patient's baseline. Ms. Berg has a history of dementia; fluctuating AMS is patient's current baseline. She is medically ready to discharge back to [facility] and follow up with her primary care provider as needed. Status at Discharge Functional status at discharge: bed bound Overall status at discharge: patient is back to baseline Time Spent with Patient Time attestation: Total time spent providing and/or coordinating discharge services: Time spent: greater than 30 minutes Discharge Plan Discharge Condition: Stable Discharge Medications: No Action ipratropium-albuterol 0.5 mg-3 mg(2.5 mg base)/3 mL solution for nebulization 3 ml INHALATION Q6H PRN (Reason: COPD) olanzapine 2.5 mg tablet 2.5 mg PO BID megestrol 40 mg tablet 40 mg PO BID lisinopril 5 mg tablet 5 mg PO .QD Rx Instructions: HOLD IF SYSTOLIC BP <110 atenolol 50 mg tablet 50 mg PO BID Rx Instructions: HOLD IF HR <60 AND/OR SYSTOLIC <110 diclofenac sodium 1 % gel 1 g TOPICAL Q12H PRN (Reason: ARTHRITIS) Rx Instructions: APPLY TO BOTH HANDS TOPICALLY EVERY 12 HOURS NEEDED fluticasone furoate-vilanterol [Breo Ellipta] 200-25 mcg/dose blister with device 1 inh INHALATION Q24H acetaminophen 325 mg tablet 650 mg PO Q6H PRN (Reason: pain) polyethylene glycol 3350 17 gram/dose powder 17 g PO BEDTIME Rx Instructions: ALSO TAKES PRN DAILY clindamycin HCl 300 mg capsule 300 mg PO Q6H Qty: 20 0RF hydrocodone-acetaminophen 10-325 mg tablet 1 tab PO Q8H PRN (Reason: pain) docusate sodium [OneLAX Docusate Sodium] 50 mg/5 mL liquid 100 mg PO BID Beneprotein 6 gram-25 kcal/7 gram powder in packet 1 ea PO TID ascorbic acid (vitamin C) 500 mg tablet 500 mg PO BID gabapentin 400 mg capsule 400 mg PO DAILY gabapentin 800 mg tablet 800 mg PO BEDTIME Hospital Course: This is a 74 year old female patient that presented to the ER with c/o per snf patient had been SOB and lethargic with AMS. Patient denied any c hest pain, abdominal pain, back pain, fever, chills or N/V. patient is A&O to name and place and confused to month and year but has a hx of dementia. Patient was admitted to med/surg for observation and treatment due to AMS, Acute UTI, and acute hyponatremia. Patient was started on Ceftriaxone Sodium 1 gm in Sodium Chloride 50 mls @ 100 mls/hr IV for her urinary track infection. Hyponatremia has been treated with Sodium Chloride 1,000 mls @ 75 mls/hr IV; sodium level is progressing back to patient's baseline. Ms. Berg has a history of dementia; fluctuating AMS is patient's current baseline. She is medically ready to discharge back to [facility] and follow up with her primary care provider as needed. Interventions: MED/SURG & ICU Observation Charge Sheet Last Done: 10/29/24 06:02 Print Language: Kyr[place] Activity Restrictions/Additional Instructions: needs hypercalcemia and anemia work up and treatment per attending decision increase electrolyte and ensure intake since not eating and drinking well Meropenem 1 gram IV every 8 hours in infusion and pharmacy can dose accordingly for 10 days good handwashing and avoid extreme temps, allergens and contacts and wear a mask when around other contacts Forms: Portal/Health Info Access Inst Follow-Ups: Bhaskar Banks MD [Primary Care Provider] -
[2024-10-29 11:32] VITALS: BP 105/57; PULSE 66; RESP 19; TEMP 98.5
== END 2024-10-29 12:15 ==
LOC: ED 14:20 → MS 14:20
PROVIDERS: ADMIT Family Medicine; ATTEND Family Medicine
DX: N39.0 Urinary tract infection, site not specified; J32.0 Chronic maxillary sinusitis; E83.52 Hypercalcemia; R09.02 Hypoxemia; E44.0 Moderate protein-calorie malnutrition; R06.02 Shortness of breath; E87.1 Hypo-osmolality and hyponatremia; K59.00 Constipation, unspecified; I10 Essential (primary) hypertension; R33.8 Other retention of urine; J69.0 Pneumonitis due to inhalation of food and vomit; J47.1 Bronchiectasis with (acute) exacerbation; M15.3 Secondary multiple arthritis; D64.89 Other specified anemias; R53.83 Other fatigue; T83.511A Infection and inflammatory reaction due to indwelling urethral catheter, initial encounter; E88.09 Other disorders of plasma-protein metabolism, not elsewhere classified; K21.00 Gastro-esophageal reflux disease with esophagitis, without bleeding; E87.8 Other disorders of electrolyte and fluid balance, not elsewhere classified; F01.B18 Vascular dementia, moderate, with other behavioral disturbance; R41.82 Altered mental status, unspecified